=== PATIENT | female | born 1935 | race Caucasian/White ===

== ENCOUNTER 2018-10-14 14:38 | Inpatient (IN) | payer OTHER ==
[~2018-10-14] VITALS: Ht 152.4 cm; Wt 61.2 kg
--- NOTE | ~2018-10-14 | HC ---
[facility] [place] [address] CONSULTATION Name: BERNY LEE Room #: 419-P ADM IN M.R.#: [id number] Admission: 10/14/18 Attend Phys: Hilton Vivar MD Discharge: Date of : 35 Report #: [id number] THIS REPORT FOR: //name// CC: NO PCP Hilton Vivar DATE OF SERVICE: 10/15/2018 HISTORY OF PRESENT ILLNESS: The patient is an 82-year-old white female who slipped on some ice, had a pop in her back. She was diagnosed with an acute compression fracture at T8. She has now undergone T8 vertebroplasty on 10/15/2018. She notes that overall she is doing better. We are seeing her in rehabilitation medicine consultation. PAST MEDICAL HISTORY: Includes chronic bronchitis, severe osteoporosis, degenerative arthritis with multiple joint replacements. She has had bilateral hips replaced and a left knee replaced and she is scheduled to have a right total knee replacement on 10/20/2018. She has some Raynaud's syndrome, complaints involving her hands, feet, the nose. She has also had a prior history of lumbar spine surgery in 2011. ALLERGIES: OPIOIDS. MEDICATIONS: Please see the full medication listing. This includes vitamins, herbals, and supplements per report. HABITS: No history of tobacco or alcohol abuse. SOCIAL HISTORY: She lives in a house in [facility]. No steps, premorbidly was independent without assistive devices. Does have an involved son. REVIEW OF SYSTEMS: Did not offer any current complaints of chest pain, shortness of breath or abdominal discomfort. She notes some of the extremity complaints as noted above with a history of Raynaud's and she questions whether she may have a peripheral neuropathy. PHYSICAL EXAMINATION: GENERAL: She is a pleasant 82-year-old slender white female in no obvious distress. VITAL SIGNS: Last recorded temperature 97.9, pulse 65, respirations 18, blood pressure 124/64. NEUROLOGIC: The patient is alert. HEAD, EYES, EARS, NOSE, AND THROAT: Appeared to be benign. Cranial nerves are grossly intact. Facies are symmetric. EXTREMITIES: She has functional range of motion of both upper extremities with strength grade 4-/5. DTRs are trace to 1. She [place] [address] CONSULTATION Name: BERNY LEE [facility] Room #: 419-P ADM IN M.R.#: [id number] Admission: 10/14/18 Attend Phys: Hilton Vivar MD Discharge: Date of : 35 Report #: [id number] of her hands. In the lower extremities, there is no focal calf swelling, functional range of motion. Strength appeared to be quite good. A grade 4 to 4-. Functionally, she was sit to stand, standby assistance and ambulated 250 feet standby assistance with a front-wheeled walker. Physical therapy felt that she would be safe for home when medically clear. ASSESSMENT: An 82-year-old white female with the following problem list: 1. Acute compression fracture T8, status post vertebroplasty on 10/15/2018. 2. History of severe osteoporosis. 3. Multiple prior joint replacements. 4. Severe degenerative arthritis scheduled to have a right total knee replacement on 10/20/2018. 5. Prior history of lumbar spine surgery in 2011. PLAN: The patient is actually too high level to warrant an acute in-hospital inpatient rehabilitation stay. She did well with her transfers and ambulation with a walker and physical therapy. We would agree that she should be able to return directly home when medically cleared. By: [id number] Duane Saleh MD /[facility]
[2018-10-14] MEDS ORDERED: RESTASIS1 EACH OPHTHALMIC (15:18)
[2018-10-14] MEDS ORDERED: CHLORTHALIDONE25 MG PO (15:19)
[2018-10-14] MEDS ORDERED: PROCARDIA XL30 MG PO (15:19)
[2018-10-14] MEDS ORDERED: SULFASALAZINE500 M4 PO (15:20)
[2018-10-14] MEDS ORDERED: DOXYCYCLINE HYC50 MG PO (15:21)
[2018-10-14] MEDS ORDERED: CLONAZEPAM 0.50.5 M1 PO (15:22)
[2018-10-14] MEDS ORDERED: FLEXERIL PO (15:22)
[2018-10-14] MEDS ORDERED: KLOR-CON 1010 MEQ PO (15:23)
[2018-10-14] MEDS ORDERED: CALCITRATE200 MG PO (15:24)
[2018-10-14] MEDS ORDERED: FIBER350 GM PO (15:24)
[2018-10-14] MEDS ORDERED: FISH OIL 1,001000 M2 PO (15:25)
[2018-10-14 18:08] LABS: URINE BILIRUBIN NEGATIVE (Negative); URINE BLOOD NEGATIVE (Negative); URINE CLARITY CLEAR; URINE COLOR YELLOW; URINE GLUCOSE-RANDOM* NEGATIVE (Negative); URINE KETONES NEGATIVE (Negative); URINE LEUKOCYTES-REFLEX NEGATIVE (Negative); URINE NITRITE-REFLEX NEGATIVE (Negative); URINE PROTEIN (DIPSTICK) NEGATIVE (Negative); URINE SPECIFIC GRAVITY 1.015 (1.005-1.035); URINE UROBILINOGEN 0.2 E.U./dl (0.2-1.0)
[2018-10-14 18:14] LABS: ABSOLUTE NEUTROPHILS 6.3 thou/uL (1.4-8.2); BASOPHILS 0.3 % (0.0-2.0); EOSINOPHILS 0.5 % (0.0-3.0); HEMATOCRIT 35.3 % (37.0-47.0); HEMOGLOBIN 12.1 gm/dL (12.0-15.0); LYMPHOCYTES 16.3 % (24.0-44.0); MCH 29.7 pg (26.0-34.0); MCHC 34.4 g/dL (28.0-37.0); MCV 86.3 fL (80.0-100.0); MONOCYTES 7.9 % (1.0-8.0); PLATELET COUNT 265 thou/uL (150-400); RBC 4.09 mil/uL (4.20-5.00); WBC 8.5 thou/uL (4.0-11.0)
[2018-10-14 18:23] LABS: CALCIUM 9.3 mg/dL (8.5-10.1); CREATININE 0.7 mg/dL (0.6-1.0); POTASSIUM 3.2 mmol/L (3.5-5.1)
[2018-10-14 18:30] LABS: ALBUMIN 3.8 g/dL (3.4-5.0); TOTAL BILIRUBIN 0.3 mg/dL (<0.1-1.0)
[2018-10-14 18:31] LABS: APTT 26.9 Seconds (24.5-32.8); PROTIME 10.2 Seconds (9.3-11.4)
[2018-10-14 18:41] VITALS: BP 126/95
[2018-10-14 19:45] VITALS: BP 117/64
[2018-10-14 20:47] VITALS: BP 125/63
--- NOTE | 2018-10-15 02:00 | NUR ---
Pt came up to unit approx 1999. Alert and oriented x4. C/o back pain due to compression fx from fall. Admission assessment completed. Prn pain meds administered. IVF administered. Pt calls appropriately. Call light within reach. Will continue to monitor and assist with needs.
[2018-10-15 04:52] VITALS: BP 121/62
[2018-10-15 05:53] LABS: ABSOLUTE NEUTROPHILS 2.8 thou/uL (1.4-8.2); BASOPHILS 0.5 % (0.0-2.0); EOSINOPHILS 1.1 % (0.0-3.0); HEMATOCRIT 35.4 % (37.0-47.0); HEMOGLOBIN 11.7 gm/dL (12.0-15.0); LYMPHOCYTES 27.8 % (24.0-44.0); MCH 29.5 pg (26.0-34.0); MCHC 33.2 g/dL (28.0-37.0); MCV 88.9 fL (80.0-100.0); MONOCYTES 11.4 % (1.0-8.0); PLATELET COUNT 244 thou/uL (150-400); POLYS 59.2 % (36.0-66.0); RBC 3.99 mil/uL (4.20-5.00); RDW 15.2 % (10.5-14.5); WBC 4.7 thou/uL (4.0-11.0)
[2018-10-15 05:59] LABS: CALCIUM 8.9 mg/dL (8.5-10.1); CREATININE 0.7 mg/dL (0.6-1.0); POTASSIUM 3.9 mmol/L (3.5-5.1)
[2018-10-15 08:00] VITALS: BP 138/72
[2018-10-15 11:45] VITALS: BP 131/77
[2018-10-15 12:11] VITALS: BP 124/64
--- NOTE | 2018-10-15 13:45 | NUR ---
INITIAL ASSESSMENT: Pt evaluated for d/c planning needs. Reviewed chart and spoke with nurse, pt and pt's son. Pt is alert and oriented. Pt lives alone in house at [facility]. Pt was independent with ADL's prior to admission to the hospital. Pt is scheduled to have knee replacement surgery next week. Pt has walker at home and has had home health in the past. Pt plans on returning to her house at [facility] on d/c from hospital. Will remain available to assist as needed.
[2018-10-15 16:15] VITALS: BP 114/66
--- NOTE | 2018-10-15 19:24 | NUR ---
Assumed pt care at 7am.Assessment completed.vss.Pt kept npo for kyphoplasty. Dr Vivar here,order noted.Pt left for procedure in radiology around 1030 and returned noon in stable condition.Family here and updates given.Pt requested for labs drawn per her or doctor at [facility] .Dr Vivar notified and he said he will review it in am .Pt notified.Report off to noc rn.
[2018-10-15 19:28] VITALS: BP 132/68
--- NOTE | 2018-10-15 23:30 | NUR ---
Assumed care of pt at 1900. Pt alert and oriented x4. Pain controlled with prn pain meds. Pt able to ambulate with minimal discomfort. Possible d/c in am. Pt calls appropriately. Will continue to monitor.
--- NOTE | 2018-10-16 03:58 | NUR ---
ASSUMED PT CARE. PT SEEN, AGREE WITH PREVIOUS ASSESSMENT. WILL CONTINUE POC UNTIL EOS.
[2018-10-16 04:07] VITALS: BP 125/66
[2018-10-16 07:40] VITALS: BP 122/63
--- NOTE | 2018-10-16 10:25 | NUR ---
Received order from physician to arrange home health. Spoke with pt and she declines home health at this time. Pt plans on returning home today.
--- NOTE | 2018-10-16 12:54 | NUR ---
Assumed pt care at 7am.Pt in and out of bed to bathroom with assist. Assessment completed.vss.Pt tolerated med and diet.Dr Vivar here,order noted. Pt scheduled for dc home after lunch.Dc summary compiled and reviewed with py and son.Piv dc'd.Pt will be dc home when done eating lunch.No verbal c/o pain or any discomfort.Will continue to monitor.
[2018-10-16] MEDS ORDERED: ACETAMINOPHEN325 M1 PO (13:04)
[2018-10-16] MEDS ORDERED: LIDOPATCH1 EACH TRANSDERM (13:04)
[2018-10-16] MEDS ORDERED: HYDROCODON-ACE1 EAC7 PO (13:04)
[2018-10-16 13:52] VITALS: BP 122/63
== END 2018-10-16 14:35 | disposition home or self-care (01) | DRG 515 ==
LOC: ER 14:38 → EROBS 17:57 → 4E 17:57 → ENTRNSPT 10-16 14:18 → EDTRNSPTSTS 10-16 14:20 → 4E 10-16 14:35
PROVIDERS: Nurse Practitioner; ADMIT Internal Medicine
PROC: 0PS43ZZ Reposition Thoracic Vertebra, Percutaneous Approach (ICD-10-PCS; principal; 2018-10-15)
PROC: 0PU43JZ Supplement Thoracic Vertebra with Synthetic Substitute, Percutaneous Approach (ICD-10-PCS; principal; 2018-10-15)
DX: S22.069A Unspecified fracture of T7-T8 vertebra, initial encounter for closed fracture (principal); E43 Unspecified severe protein-calorie malnutrition; Z96.643 Presence of artificial hip joint, bilateral; Z96.652 Presence of left artificial knee joint; M81.0 Age-related osteoporosis without current pathological fracture; N18.9 Chronic kidney disease, unspecified; M19.90 Unspecified osteoarthritis, unspecified site; E87.6 Hypokalemia; F41.9 Anxiety disorder, unspecified; M85.80 Other specified disorders of bone density and structure, unspecified site; G62.9 Polyneuropathy, unspecified; J44.9 Chronic obstructive pulmonary disease, unspecified; Z60.2 Problems related to living alone; M62.84 Sarcopenia; S60.032A Contusion of left middle finger without damage to nail, initial encounter; I73.00 Raynaud's syndrome without gangrene; Z88.6 Allergy status to analgesic agent; W01.0XXA Fall on same level from slipping, tripping and stumbling without subsequent striking against object, initial encounter; Y93.89 Activity, other specified; Y92.89 Other specified places as the place of occurrence of the external cause; Y99.8 Other external cause status
CPT/HCPCS: 10783

== ENCOUNTER 2019-06-22 19:15 | Inpatient (IN) | payer OTHER ==
[~2019-06-22] VITALS: Ht 157.5 cm; Wt 53.1 kg
[~2019-06-22 19:15] MED LIST: ACETAMINOPHEN325 M1 PO; CALCITRATE200 MG PO; CHLORTHALIDONE25 MG PO; CLONAZEPAM 0.50.5 M1 PO; DOXYCYCLINE HYC50 MG PO; FIBER350 GM PO; FISH OIL 1,001000 M2 PO; FLEXERIL PO; HYDROCODON-ACE1 EAC7 PO; KLOR-CON 1010 MEQ PO; LIDOPATCH1 EACH TRANSDERM; PROCARDIA XL30 MG PO; RESTASIS1 EACH OPHTHALMIC; SULFASALAZINE500 M4 PO
[2019-06-22 19:16] VITALS: BP 154/66
[2019-06-22 19:43] LABS: ABSOLUTE NEUTROPHILS 5.3 thou/uL (1.4-8.2); BASOPHILS 0.3 % (0.0-2.0); EOSINOPHILS 0.3 % (0.0-3.0); HEMATOCRIT 35.2 % (37.0-47.0); HEMOGLOBIN 11.7 gm/dL (12.0-15.0); LYMPHOCYTES 15.9 % (24.0-44.0); MCH 29.7 pg (26.0-34.0); MCHC 33.2 g/dL (28.0-37.0); MCV 89.6 fL (80.0-100.0); MONOCYTES 9.5 % (1.0-8.0); PLATELET COUNT 257 thou/uL (150-400); RBC 3.93 mil/uL (4.20-5.00); RDW 16.3 % (10.5-14.5); WBC 7.1 thou/uL (4.0-11.0)
[2019-06-22 19:49] LABS: CALCIUM 9.2 mg/dL (8.5-10.1); CREATININE 0.7 mg/dL (0.6-1.0); POTASSIUM 3.8 mmol/L (3.5-5.1)
[2019-06-22] MEDS ORDERED: LEFLUNOMIDE20 MG PO (20:20)
[2019-06-22] MEDS ORDERED: HYDROCHLOROTH12.5 M2 PO (20:20)
[2019-06-22 23:37] VITALS: BP 132/65
[2019-06-23 00:05] VITALS: BP 132/65
[2019-06-23 02:32] LABS: URINE BILIRUBIN NEGATIVE (Negative); URINE BLOOD 3+ (Negative); URINE CLARITY SL CLOUDY; URINE COLOR YELLOW; URINE GLUCOSE-RANDOM* TRACE (Negative); URINE KETONES NEGATIVE (Negative); URINE LEUKOCYTES-REFLEX NEGATIVE (Negative); URINE NITRITE-REFLEX NEGATIVE (Negative); URINE PROTEIN (DIPSTICK) NEGATIVE (Negative); URINE SPECIFIC GRAVITY 1.015 (1.005-1.035); URINE UROBILINOGEN 0.2 E.U./dl (0.2-1.0)
[2019-06-23 02:39] LABS: BACTERIA-REFLEX 1-9 Few /HPF (None Seen); CASTS None Seen /LPF (None Seen); SQUAMOUS None Seen /LPF (0-3); URINE RBC >20 Many /HPF (0-2); URINE WBC-REFLEX None Seen /HPF (0-5)
[2019-06-23 02:40] LABS: CRYSTALS None Seen /LPF (None Seen)
--- NOTE | 2019-06-23 04:56 | NUR ---
PT REQUESTED TO SPEAK TO CASE MANAGEMENT ABOUT GOING TO [facility] TO COMPLETE REHABILITATION.
[2019-06-23 05:19] VITALS: BP 110/62
--- NOTE | 2019-06-23 05:25 | NUR ---
Pt arrived on unit at 0005 from ED via cart accompained by staff. A/OX4,on bedrest and requires max assist with sliding device. Admission paperwork completed. Pt c/o pain to don pelvis with movement, medicated with Tylenol per request pt does not like taking opiods d/t nausea. Relief reported with pain meds/Klonopin. Pt has a dennison catheter draining light yellow urine d/t immobilization. C/o nausea but denied need for nausea meds. Fall precautions implemented. Call light/personal items within reach. Will continue to monitor pt.
[2019-06-23 08:55] VITALS: BP 160/63
--- NOTE | 2019-06-23 15:47 | NUR ---
INITIAL ASSESSMENT: Pt evaluated for d/c planning needs. Reviewed chart and spoke with nurse and pt. Pt is alert and oriented. Pt recently returned from trip to [place] and fell at the airport. Pt drove herself back to house at [facility]. Pt has walker and cane at home. Pt hopes to go to [facility]. Asked marketing planner to fax referral to [facility]. Will remain available to assist as needed.
--- NOTE | 2019-06-23 16:52 | NUR ---
FAXED REFERRAL TO [facility] SPOKE WITH DANA IN ADN SHE RECEIVED REFERRAL AND WILL REVIEW. DP TO FOLLOW.
[2019-06-23 18:36] VITALS: BP 139/75
[2019-06-23 19:48] VITALS: BP 145/82
--- NOTE | 2019-06-23 20:33 | NUR ---
ASSUMED CARE OF PATIENT AT 0715, PATIENT ALERT AND ORIENTED X 4. PATIENT C/O PAIN, RECEIVED TYLENOL 650 MG X 1 THIS SHIFT. PATIENT HAS FENTANYL PATCH IN PLACE, RIGHT SIDE OF CHEST, PATIENT REQUESTED FENTANYL PATCH BE DISCONTINUED DUE TO NAUSEA/VOMITING. THIS RN NOTIFIED DR MACIAS OF PATIENT WANTING MEDICATION DISCONTINUED AND CHANGE ZOFRAN 4MG IV TO EVERY 4 HRS/PRN. PATIENT HAS RIGHT FOREARM IV IN PLACE. PT WORKED WITH THE PATIENT TODAY, GO HER UP TO THE CHAIR, WIITH MINIMAL ASSIST WITH GAIT BELT AND WALKER. PATIENT VOMITTED X 2 THIS SHIFT. CONSULT IN FOR PHARMACY TO HELP WITH PATIENT MEDS, THIS RN NOTIFIED DR MACIAS. FENATNYL PATCH REMOVED AND WASTED. WILL CONTINUE TO MONITOR.
[2019-06-24 03:48] VITALS: BP 106/60
--- NOTE | 2019-06-24 05:24 | NUR ---
PATIENT ALERT AND ORIENTED X4. C/O NAUSEA AND VOMITING. STATES ZOFRAN DID NOT HELP, ENTERTAINMENT DIRECTOR WAS CALLED AND AND ORDER FOR COMPAZINE WAS OBTAINED AND GIVEN. PATIENT WAS CONCERNED THAT HER MEDS WERE NOT LIKE SHE TAKES THEM AT HOME. PRINTED OFF SHEET AND SAT DOWN WITH HER AND WENT OVER THEM, CALLED PHARMACY AND HAD THEM PUT SHE TAKES AT HOME. SHE IS ALSO CONCERNED ABOUT AN MRI OF HER SHOULDER. NEWELL PATENT YELLOW URINE. SLEPT OFF AND ON DURING NIGHT.
[2019-06-24 07:50] VITALS: BP 122/59
--- NOTE | 2019-06-24 13:17 | NUR ---
Following for d/c planning needs. Spoke with material coordinator at [facility]. She said she received referral yesterday and will not have be4d available until Friday at the earliest. Explained to patient that [facility] will not have a bed availabie until Friday at the earliest. Gave skilled list to patient. She said she will talk with her son. Will remain available to assist as needed.
[2019-06-24 16:52] VITALS: BP 125/75
[2019-06-24 19:45] VITALS: BP 117/66
--- NOTE | 2019-06-25 01:49 | NUR ---
ASSUMED CARE OF PT @1900 PT ASSESSED AT START OF SHIFT A&OX4. STATED WANTED HER MILK OF MAG FOR THE NIGHT DUE TO CONSTIPATION. EVENING MEDS GIVEN AND PT ESTER IT WELL. FOLLEY CATH INTACT AND YELLOW URINE NOTED. FALL PREC IN PLACE AND WILL CONT WITH POC TILL EOS
[2019-06-25 05:30] VITALS: BP 131/71
[2019-06-25 08:00] VITALS: BP 130/70
--- NOTE | 2019-06-25 12:45 | HC ---
[facility] [place] [address] CONSULTATION Name: BERNY LEE Room #: 439-P ADM IN M.R.#: [id number] Admission: 06/22/19 Attend Phys: Hilton Vivar MD Discharge: Date of : 35 Report #: [id number] THIS REPORT FOR: //name// CC: [facility] physician/PCP Hilton Vivar DATE OF SERVICE: 06/23/2019 CHIEF COMPLAINT: Pelvic and left shoulder pain. HISTORY OF PRESENT ILLNESS: This frail, but still active, alert and independent 83-year-old female has problems with severe osteoporosis and multiple previous orthopedic injuries and surgeries. She has had lumbar decompression and fusion. She has had previous compression fractures involving T8 and T12, which required vertebroplasty. She has had bilateral total hip replacement and total knee replacement. She has had periodic falls and had a right pubic ramus fracture noted last October. She has also had a nondisplaced sacral fracture. Despite these significant ongoing problems, she has still been functionally active and independent. She was travelling and when she returned home and stumbled over her suitcase and fell once again, now she is complaining of more significant pelvic pain and also some left upper back periscapular and shoulder discomfort. At the time of my evaluation, she is alert and oriented and seems to understand the situation well. She notes that her principal discomfort is in the pelvis, both toward the left and the right. She states she has no problems with the hip joint, nor the knee joint. She denies any radiating lower leg discomfort. She notes some left-sided upper back and periscapular pain, but denies any significant discomfort at the shoulder joint itself. She is not having any significant new neck or mid back pain. Objectively, she is alert and oriented. She is frail and slender. She seems to have satisfactory movement at the neck and back without localized discomfort. The right upper extremity reveals good movement without pain about the shoulder or arm. Left upper extremity reveals good movement at the shoulder with nearly full flexion, extension, rotation and abduction. There is no significant joint crepitus nor any deformity nor any findings which would suggest fracture at the shoulder joint. There is some tenderness over the scapula and the posterior ribs, but there is no localized point tenderness and no significant bruising. The remainder of the elbow, forearm, wrist and hand appear to be normal. Findings here are most suggestive of contusion or possible rib injury. The pelvis reveals normal contour and alignment. She has good movement of both hips, where total hip replacement seemed to be stable and functioning nicely. She does complain of some discomfort in the anterior pubic region, both on the right and the left consistent with pubic rami fractures. The posterior pelvis is minimally tender. Both lower extremities reveal satisfactory alignment, good range of motion of both knees, which appeared to be stable with satisfactory [address] [address] CONSULTATION Name: BERNY LEE Room #: 439-P ADM IN M.R.#: [id number] Admission: 06/22/19 Attend Phys: Hilton Vivar MD Discharge: Date of : 35 Report #: [id number] total joint replacement. The lower leg, foot, and ankle appear to be normal. X-rays and CT scan of the lumbar spine and pelvis reveal an old fusion in the 2 lowest segments and significant diffuse degenerative lumbar spondylosis. There appears to be an old nondisplaced fracture in the sacrum at about the S1 or S2 level. There are bilateral total hip replacements, which are stable and appeared to be functioning nicely. She has fractures of the right and left pubic rami. I believe the right is more old and consistent with her October injury. The left seems possibly more recent and consistent with her recent fall. X-rays of the left shoulder reveal no obvious fractures, but some mild degenerative change. IMPRESSION: In summary, I think this patient has a new left pubic ramus fracture, which is nondisplaced and stable and can be treated nonoperatively. The hips and the low back appear to be unchanged. Her previous right pubic rami fractures are unchanged. Her previous sacral fractures unchanged. The left shoulder demonstrates no evidence of new fracture, but I suspect she may have either significant contusion or possibly a minor rib injury. This can also be treated conservatively. I feel she can be up with therapy and activity with a walker for protection. She will probably need some period of time in an extended care facility or rehabilitation facility before she can return to her own home where she lives independently. I would not anticipate any surgical intervention will be required. <ELECTRONICALLY SIGNED> By: Duane Kelley MD 06/25/19 1245 [id number] Duane Kelley MD /nt
[2019-06-25 13:55] LABS: HEMATOCRIT 39.2 % (37.0-47.0); MCH 29.9 pg (26.0-34.0); MCHC 33.2 g/dL (28.0-37.0); MCV 90.2 fL (80.0-100.0); RBC 4.35 mil/uL (4.20-5.00); RDW 15.8 % (10.5-14.5); WBC 7.1 thou/uL (4.0-11.0)
[2019-06-25 14:03] LABS: CALCIUM 9.6 mg/dL (8.5-10.1); CREATININE 0.7 mg/dL (0.6-1.0); MAGNESIUM 2.4 mg/dL (1.8-2.4); POTASSIUM 4.2 mmol/L (3.5-5.1)
[2019-06-25 17:41] VITALS: BP 125/64
--- NOTE | 2019-06-25 18:08 | NUR ---
ASSUMED CARE OF PT AT 0700. PT REQUESTED TO HAVE IV DISCONTINUED. CALLED DR. MACIAS AND PER CAN REMOVE IV AND DO NOT REPLACE WITH ANOTHER IV PER PT. PT IS HAVING A PROBLEM HAVING A BM. GAVE MILK OF MAGNESIUM TO PT TO HELP ASSIST WITH HAVING A BM. PT WALKED WITH PT AND IS VERY FATIGUE WHEN DONE. FALL PRECAUTIONS IN PLACE AND PT EDUCATED. BED IN LOWEST POSITION AND BED ALARM ON. WILL CONTNIUE TO MONITOR THE PT.
[2019-06-25 19:50] VITALS: BP 112/54
--- NOTE | 2019-06-26 03:47 | NUR ---
PATIENT ALERT AND ORIENTED X4. C/O BEING CONSTIPATED, CALLED TO GET ORDER FOR SUPPOSITORY, OBTAINED AND GIVEN. PATIENT STATED SHE HAD GOOD RESULTS BUT FEELS SHE COULD GO SOME MORE. GETS UP WITH [facility]. C/O PAIN IN L SHOLDER AND PELVIC AREA. HARD TO TURN ON SIDE. DOES NOT LIKE TO TAKE OPIOIDS, MAKES NAUSIATED AND VOMITS. SLEPT MOST OF THE NIGHT.
[2019-06-26 05:45] VITALS: BP 125/68
[2019-06-26 09:19] VITALS: BP 122/75
[2019-06-26] MEDS ORDERED: LIDOPATCH1 EACH TRANSDERM (12:43)
--- NOTE | 2019-06-26 16:03 | NUR ---
TRANSPORTATION IN TO [facility] PT IN [facility]. NO IV IS PRESENT. SCRIPT OF ROSA SENT WITH HER DC ORDERS. REPORT CALLED TO [facility] AND SPOKE TO GUERRERO.
== END 2019-06-26 13:00 | DRG 536 ==
LOC: ER 19:15 → EROBS 23:19 → 4S 23:19 → EROBS 23:19 → 4S 23:56
PROVIDERS: Emergency Medicine; Internal Medicine; Nurse Practitioner Acute Care; ADMIT Internal Medicine
DX: S32.512A Fracture of superior rim of left pubis, initial encounter for closed fracture (principal); I10 Essential (primary) hypertension; F41.9 Anxiety disorder, unspecified; Z96.643 Presence of artificial hip joint, bilateral; Z96.652 Presence of left artificial knee joint; M81.0 Age-related osteoporosis without current pathological fracture; M19.90 Unspecified osteoarthritis, unspecified site; G62.9 Polyneuropathy, unspecified; W18.39XA Other fall on same level, initial encounter; I73.00 Raynaud's syndrome without gangrene; M25.512 Pain in left shoulder; K59.00 Constipation, unspecified; S32.511A Fracture of superior rim of right pubis, initial encounter for closed fracture; Z79.899 Other long term (current) drug therapy; Z88.6 Allergy status to analgesic agent; Z91.048 Other nonmedicinal substance allergy status; Y93.89 Activity, other specified; Y92.89 Other specified places as the place of occurrence of the external cause; Y99.8 Other external cause status
CPT/HCPCS: 10195